=== PATIENT | male | born 2000 | race Caucasian/White ===

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

== ENCOUNTER 2023-01-29 19:04 | Emergency (ER) | payer BC ==
[2023-01-29 19:13] VITALS: RESP 18; TEMP 98.8
[2023-01-29] MEDS ORDERED: FAMOTIDINE 20 MG TAB PO STA (19:32)
[2023-01-29] MEDS ORDERED: DEXAMETHASONE SOD PHOSPHATE 10 MG/ML 1 ML VIAL IM STA (19:32)
--- NOTE | 2023-01-29 19:37 | ED ---
General Adult HPI - General Chief complaint: Allergic Reaction Stated complaint: Allergic Reaction: Tree Nuts Time Seen by Provider: 01/29/23 19:27 Source: patient, RN notes reviewed, old records reviewed Mode of arrival: ambulatory Limitations: no limitations - History of Present Illness Initial comments: This is a well-appearing 22-year-old male that presents ambulatory with complaints of ingesting tree nuts at approximately 5:30 this evening. States 15 minutes later he started having itchy throat, hives to legs arms and chest with nausea. He does have an EpiPen but did not use it. He took 50 mg of Benadryl around 7:30. States started to feel like he was developing a wheeze so he came to the emergency room. Denies any difficulty swallowing or tongue swelling. No vomiting. He states he is feeling much better at this time. -: hour(s) (2) Severity scale (1-10): 0 Consistency: now resolved Improves with: other (benadryl) Associated Symptoms: denies other symptoms Treatments Prior to Arrival: other (benadryl 50mg) - Related Data Home Medications Medication Instructions Recorded Confirmed LORazepam [Ativan] 1 mg PO DAILY PRN 09/21/18 09/21/18 PARoxetine HCL [Paxil] 40 mg PO HS 09/21/18 09/21/18 PARoxetine [Paxil] 10 mg PO HS 09/21/18 09/21/18 Allergies Allergy/AdvReac Type Severity Reaction Status Date / Time amoxicillin Allergy Rash/Hives Verified 01/29/23 19:13 tree nut Allergy Rash/Hives Verified 01/29/23 19:13 Review of Systems ROS Statement: Those systems with pertinent positive or pertinent negative responses have been documented in the HPI. ROS Other: All systems not noted in ROS Statement are negative. Past Medical History Past Medical History: No Reported History History of Any Multi-Drug Resistant Organisms: None Reported Past Surgical History: No Surgical Hx Reported Past Psychological History: Anxiety Smoking Status: Never smoker Past Alcohol Use History: None Reported Past Drug Use History: None Reported General Exam Limitations: no limitations General appearance: alert, in no apparent distress Head exam: Present: atraumatic Eye exam: Present: normal appearance. Absent: scleral icterus, conjunctival injection, periorbital swelling ENT exam: Present: mucous membranes moist Expanded Mouth exam: Present: tongue normal, tongue elevation. Absent: drooling, trismus, muffled voice Throat exam: normal inspection. negative: tonsillar erythema, tonsillomegaly, tonsillar exudate, R peritonsillar mass, L peritonsillar mass Neck exam: Present: full ROM. Absent: tenderness, meningismus Respiratory exam: Present: normal lung sounds bilaterally. Absent: respiratory distress, accessory muscle use Cardiovascular Exam: Present: tachycardia GI/Abdominal exam: Present: soft Extremities exam: Present: full ROM, normal capillary refill. Absent: pedal edema Back exam: Present: full ROM. Absent: tenderness, rash noted Neurological exam: Present: alert, oriented X3 Psychiatric exam: Present: normal affect, normal mood Skin exam: Present: warm, dry, normal color, urticaria (thighs, arms) Course Vital Signs 01/29/23 01/29/23 19:11 20:21 Temperature 98.8 F Pulse Rate 104 H 98 Respiratory 18 18 Rate Blood Pressure 125/83 122/74 O2 Sat by Pulse 100 99 Oximetry Medical Decision Making - Medical Decision Making Was pt. sent in by a medical professional or institution (Dr. PA, POWERBUILDER, urgent care, hospital, or retirement...) When possible be specific @ -No Did you speak to anyone other than the patient for history (EMS, parent, family, police, friend...)? What history was obtained from this source @ -No Did you review nursing and triage notes (agree or disagree)? Why? @ -I reviewed and agree with nursing and triage notes Were old charts reviewed (outside hosp., previous admission, EMS record, old EKG, old radiological studies, urgent care reports/EKG's, retirement records)? Report findings @ -No old charts were reviewed Differential Diagnosis (chest pain, altered mental status, abdominal pain women, abdominal pain men, vaginal bleeding, weakness, fever, dyspnea, syncope, headache, dizziness, GI bleed, back pain, seizure, CVA, palpatations, mental health, musculoskeletal)? @ -ALLERGIC reaction, anaphylaxis EKG interpreted by me (3pts min.). @ -n/a X-rays interpreted by me (1pt min.). @ -None done CT interpreted by me (1pt min.). @ -None done U/S interpreted by me (1pt. min.). @ -None done What testing was considered but not performed or refused? (CT, X-rays, U/S, labs)? Why? @ -None What meds were considered but not given or refused? Why? @ -EpiPen was considered however patient's vital signs are stable. Denies any difficulty in breathing. No throat swelling. Denies any nausea vomiting. Patient has EpiPen in hand Did you discuss the management of the patient with other professionals (professionals i.e. DrMiller, PA, POWERBUILDER, lab, RT, psych nurse, social services analyst, roof truss detailer, teacher, disability liaison officer, case technician)? Give summary @ -No Was smoking cessation discussed for >3mins.? @ -No Was critical care preformed (if so, how long)? @ -No Were there social determinants of health that impacted care today? How? (Homelessness, low income, unemployed, alcoholism, drug addiction, transportation, low edu. Level, literacy, decrease access to med. care, snf, rehab)? @ -No Was there de-escalation of care discussed even if they declined (Discuss DNR or withdrawal of care, Hospice)? DNR status @ -No What co-morbidities impacted this encounter? (DM, HTN, Smoking, COPD, CAD, Cancer, CVA, ARF, Chemo, Hep., AIDS, mental health diagnosis, sleep apnea, morbid obesity)? @ -Anxiety Was patient admitted / discharged? Hospital course, mention meds given and route, prescriptions, significant lab abnormalities, going to OR and other pertinent info. @ -Discharged This is a well-appearing 22-year-old male that presents ambulatory with complaints of ingesting tree nuts at approximately 5:30 this evening. States 15 minutes later he started having itchy throat, hives to legs arms and chest with nausea. He does have an EpiPen but did not use it. He took 50 mg of Benadryl around 7:30. States started to feel like he was developing a wheeze so he came to the emergency room. Denies any difficulty swallowing or tongue swelling. No vomiting. He states he is feeling much better at this time. On physical exam lungs sounds are clear to auscultation. Oxygen saturation 100%. Patient has mild uticaria bilateral upper thighs and arms. No nausea vomiting or diarrhea. Patient was given Decadron and Pepcid. Directed to take Benadryl 25-50 mg every 6-8 hours as needed. Use his EpiPen for throat swelling or difficulty in breathing. Return to the emergency room with any new or concerning symptoms. Patient and family member agreeable to this plan of care. Case discussed with Dr. Osuna. Undiagnosed new problem with uncertain prognosis? @ -No Drug Therapy requiring intensive monitoring for toxicity (Heparin, Nitro, Insulin, Cardizem)? @ -No Were any procedures done? @ -No Diagnosis/symptom? @ -ALLERGIC reaction to tree nuts Acute, or Chronic, or Acute on Chronic? @ -Acute Uncomplicated (without systemic symptoms) or Complicated (systemic symptoms)? @ -Uncomplicated Side effects of treatment? @ -No Exacerbation, Progression, or Severe Exacerbation? @ -No Poses a threat to life or bodily function? How? (Chest pain, [place], [place], pneumonia, PE, COPD, DKA, ARF, appy, cholecystitis, CVA, Diverticulitis, Homicidal, Suicidal, threat to staff... and all critical care pts) @ -No Disposition Clinical Impression: Allergic reaction Disposition: HOME SELF-CARE Condition: Good Instructions (If sedation given, give patient instructions): Urticaria (ED), Food Allergy (ED) Additional Instructions: Take Benadryl 25-50 mg every 6-8 hours as needed for hives. Use EpiPen as directed for any throat swelling or difficulty breathing and then return to the emergency room if use for evaluation. Is patient prescribed a controlled substance at d/c from ED?: No Referrals: Alfonso Venegas MD [Primary Care Provider] - 1-2 days Time of Disposition: 20:02
[2023-01-29 20:22] VITALS: BP 122/74; PULSE 98
== END 2023-01-29 20:22 | disposition home or self-care (01) ==
LOC: EC 19:04
DX: T78.05XA Anaphylactic reaction due to tree nuts and seeds, initial encounter (principal); F41.9 Anxiety disorder, unspecified; Z91.018 Allergy to other foods; Z88.1 Allergy status to other antibiotic agents; Z79.899 Other long term (current) drug therapy
CPT/HCPCS: 99283; 96372; J1100

== ENCOUNTER 2025-01-13 08:23 | Day surgery (SDC) | payer BC ==
[2025-01-11 15:27] VITALS: BMI 23.7
[~2025-01-13 08:23] MED LIST: SODIUM CHLORIDE 0.9% 1,000 ML IV SCH
[2025-01-13 09:03] VITALS: BP 128/68; RESP 16; TEMP 98.5
[2025-01-13 09:58] VITALS: PULSE 74
--- NOTE | 2025-01-19 10:05 | P.EPPROC ---
- EP Procedure Note Electrophysiology Procedure Note: Diagnosis Recurrent presyncope Twelve-lead EKG shows sinus rhythm normal [place] narrow QRS normal ST segments normal QT interval Tilt table test per protocol Baseline blood pressure 125/80 mmHg, baseline heart rate 74 beats minute Patient was tilted upright in angle of 70 degrees per protocol No significant change in heart rate or blood pressure Patient complained of being dizzy He also complained of feeling hot in his hands No evidence for neurocardiogenic syncope Impression Normal heart rate and blood pressure response to upright tilting Normal EKG
== END 2025-01-13 10:23 | disposition home or self-care (01) ==
LOC: CATHEP 08:23
PROVIDERS: ATTEND Internal Medicine Clinical Cardiac Electrophysiology
DX: R55 Syncope and collapse (principal)
CPT/HCPCS: 93660